=== PATIENT | female | born 1980 | race African-American/Black ===

== ENCOUNTER 2017-05-26 23:57 | Emergency (ER) | payer OTHER ==
[~2017-05-26] VITALS: Ht 167.6 cm; Wt 59.0 kg
== END 2017-05-27 02:18 | disposition home or self-care (01) ==
LOC: ER 23:57
DX: R50.9 Fever, unspecified (principal); R10.31 Right lower quadrant pain; Z59.0 Homelessness; Z88.6 Allergy status to analgesic agent; Z88.8 Allergy status to other drugs, medicaments and biological substances